=== PATIENT | female | born 1945 | race Native Hawaiian/Other Pacific Islander ===

== ENCOUNTER 2021-05-30 13:40 | Outpatient (CLI) | payer OTHER, MEDICARE | END 2021-05-30 18:59 | disposition home or self-care (01) | LOC: INF 13:40 | PROVIDERS: ATTEND Nurse Practitioner Primary Care | DX: U07.1 COVID-19 (principal) | CPT/HCPCS: 96365; M0244 ==

== ENCOUNTER 2021-05-31 15:05 | Inpatient (IN) | payer OTHER, MEDICARE ==
[~2021-05-31] VITALS: Ht 157.5 cm; Wt 71.0 kg
[2021-05-31 16:02] LABS: PLATELET COUNT 292 K/uL (152-353)
[2021-05-31 17:25] VITALS: BP 80/41; TEMP 98.9; Ht 157.5 cm; Wt 71.0 kg
[2021-05-31 20:16] VITALS: BP 103/62; TEMP 99.4
[2021-06-01 00:06] VITALS: BP 104/64; TEMP 99.2
[2021-06-01 04:00] VITALS: BP 144/85; TEMP 99.2
[2021-06-01 05:12] LABS: PLATELET COUNT 226 K/uL (152-353)
[2021-06-01 08:00] VITALS: BP 107/72; TEMP 98.2
[2021-06-01 12:00] VITALS: BP 146/70; TEMP 97.9
[2021-06-01 16:05] VITALS: BP 124/78; TEMP 97.8
[2021-06-01 20:00] VITALS: BP 126/87; TEMP 98.5
[2021-06-02] VITALS: BP 137/62; TEMP 97.9
[2021-06-02 04:00] VITALS: BP 119/58; TEMP 98.3
[2021-06-02 04:43] LABS: PLATELET COUNT 169 K/uL (152-353)
[2021-06-02 05:04] LABS: POTASSIUM 4.1 mmol/L (3.6-5.2)
[2021-06-02 08:26] VITALS: BP 141/75; TEMP 97.9
[2021-06-02 12:00] VITALS: BP 151/87; TEMP 98.3
== END 2021-06-02 14:50 | disposition home or self-care (01) | DRG 179 ==
LOC: MED/SURG 15:05
PROVIDERS: ADMIT Family Medicine; ATTEND Family Medicine
DX: U07.1 COVID-19 (principal); I95.89 Other hypotension; R00.0 Tachycardia, unspecified; R11.2 Nausea with vomiting, unspecified; E87.8 Other disorders of electrolyte and fluid balance, not elsewhere classified; I10 Essential (primary) hypertension
CPT/HCPCS: 36415; 36600; 80053; 82550; 82728; 82805; 83735; 83880; 84100; 84484; 85007; 85027; 85379; 86140; 87040; 93005; 94667; 94668; 94760; J0456; J1650; J3480